=== PATIENT | male | born 1990 | race Caucasian/White ===

== ENCOUNTER 2016-10-11 09:11 | Emergency (ER) | payer OTHER ==
--- NOTE | 2016-10-11 09:46 | XR ---
EXAMINATION TYPE: XR foot complete RT DATE OF EXAM: 10/11/2016 9:42 AM CLINICAL HISTORY: pain TECHNIQUE: Frontal, lateral and oblique images of the right foot are obtained. COMPARISON: None. FINDINGS: There is no acute fracture/dislocation evident. The joint spaces appear within normal cervantes its. The overlying soft tissue appears unremarkable. IMPRESSION: There is no acute fracture or dislocation. ICD 10 NO FRACTURE, INITIAL EVALUATION
--- NOTE | 2016-10-11 10:17 | ED ---
Lower Extremity Injury HPI - General Chief Complaint: Extremity Injury, Lower Stated Complaint: Rt ankle and toe injury Time Seen by Provider: 10/11/16 10:07 Source: patient Mode of arrival: wheelchair Limitations: no limitations - History of Present Illness Initial Comments: Patient is a 26-year-old man who presents with pain at the right first toe. The patient states that the pain started coming on over last night and into this morning. He relates that he had been taking a cheap [employer] ball on Tuesday. The patient relates that ever since he had injured his right foot probably 2-3 years ago [place] he has had recurring pains to that area, usually after kicking. He states that the kicking does not even have to be traumatic. Patient denies fever or chills. Patient denies alcohol or any drug use. MD Complaint: foot injury Onset/Timin -: days(s) Injury: Toes: Right Type of Injury: blunt Place: home Severity: moderate Improves With: nothing Worsens With: weight bearing, palpation Context: other Associated Symptoms: swelling - Related Data Previous Rx's Medication Instructions Recorded Ibuprofen [Motrin] 800 mg PO Q8HR PRN #20 tab 10/11/16 predniSONE 60 mg PO DAILY #30 tab 10/11/16 Allergies Allergy/AdvReac Type Severity Reaction Status Date / Time No Known Allergies Allergy Verified 10/11/16 09:59 Review of Systems ROS Statement: Those systems with pertinent positive or pertinent negative responses have been documented in the HPI. ROS Other: All systems not noted in ROS Statement are negative. Constitutional: Denies: fever, chills, weakness Musculoskeletal: Reports: joint swelling, arthralgia Skin: Reports: change in color Past Medical History Past Medical History: No Reported History History of Any Multi-Drug Resistant Organisms: None Reported Past Surgical History: Appendectomy, Tonsillectomy Past Psychological History: No Psychological Hx Reported Smoking Status: Current every day smoker Past Alcohol Use History: Occasional Past Drug Use History: None Reported General Exam Limitations: no limitations General appearance: alert, in no apparent distress Head exam: Present: atraumatic, normocephalic Eye exam: Present: normal appearance. Absent: scleral icterus, conjunctival injection Cardiovascular Exam: Present: other (Pedal pulses and capillary refill to the right foot normal) Extremities exam: Present: tenderness, normal capillary refill, joint swelling ( Patient has tenderness at the first MTP joint and some soft tissue swelling there. Range of motion is limited by pain but is intact.), other (There is warmth and erythema at the right first MTP joint). Absent: pedal edema Neurological exam: Present: alert. Absent: motor sensory deficit Skin exam: Present: warm, dry, intact, erythema Course Vital Signs 10/11/16 09:18 Temperature 98 F Pulse Rate 89 Respiratory 20 Rate Blood Pressure 140/88 O2 Sat by Pulse 99 Oximetry Medical Decision Making - Lab Data Result diagrams: 10/11/16 10:10 10/11/16 10:10 Lab Results 10/11/16 10/11/16 Range/Units 10:10 10:10 WBC 6.6 (3.8-10.6) k/uL RBC 5.03 (4.30-5.90) m/uL Hgb 15.7 (13.0-17.5) gm/dL Hct 45.8 (39.0-53.0) % MCV 91.2 (80.0-100.0) fL MCH 31.3 (25.0-35.0) pg MCHC 34.3 (31.0-37.0) g/dL RDW 12.8 (11.5-15.5) % Plt Count 246 (150-450) k/uL Neutrophils % 63 % Lymphocytes % 28 % Monocytes % 6 % Eosinophils % 2 % Basophils % 0 % Neutrophils # 4.2 (1.3-7.7) k/uL Lymphocytes # 1.8 (1.0-4.8) k/uL Monocytes # 0.4 (0-1.0) k/uL Eosinophils # 0.1 (0-0.7) k/uL Basophils # 0.0 (0-0.2) k/uL Sodium 142 (137-145) mmol/L Potassium 4.4 (3.5-5.1) mmol/L Chloride 105 (98-107) mmol/L Carbon Dioxide 26 (22-30) mmol/L Anion Gap 11 mmol/L BUN 20 (9-20) mg/dL Creatinine 0.91 (0.66-1.25) mg/dL Est GFR (MDRD) Af Amer >60 (>60 ml/min/1.73 sqM) Est GFR (MDRD) Non-Af >60 (>60 ml/min/1.73 sqM) Glucose 96 (74-99) mg/dL Uric Acid 5.8 (3.5-8.5) mg/dL Calcium 9.4 (8.4-10.2) mg/dL Disposition Clinical Impression: Arthralgia Narrative: This patient has arthralgia of the first right MTP joint, this is an initial evaluation. Disposition: HOME SELF-CARE Condition: Good Instructions: Arthralgia (ED), Gout (ED) Prescriptions: Ibuprofen [Motrin] 800 mg PO Q8HR PRN #20 tab PRN Reason: Pain predniSONE 60 mg PO DAILY #30 tab Referrals: None,Stated [Primary Care Provider] - 1-2 days Malcom Molina MD [REFERRING] - 1-2 days
[2016-10-11] MEDS ORDERED: IBUPROFEN 400 MG TAB PO STA (10:22)
[2016-10-11] MEDS ORDERED: predniSONE 20 MG TAB PO STA (10:22)
[2016-10-11] MEDS ORDERED: Acetaminophen-Codeine 300-30mg TAB PO STA (10:23)
[2016-10-11 10:55] LABS: Basophils % (A) 0 %; CH 32.5; CHCM 35.8; Eosinophils # (A) 0.1 k/uL (0-0.7); Eosinophils % (A) 2 %; HCT 45.8 % (39.0-53.0); HDW 2.87; HGB 15.7 gm/dL (13.0-17.5); Luc % (Auto) 2; Lymphocytes # (A) 1.8 k/uL (1.0-4.8); Lymphocytes % (A) 28 %; MCH 31.3 pg (25.0-35.0); MCHC 34.3 g/dL (31.0-37.0); MCV 91.2 fL (80.0-100.0); Mean Platelet Volume 6.4; Monocytes # (A) 0.4 k/uL (0-1.0); Monocytes % (A) 6 %; Neutrophils # (A) 4.2 k/uL (1.3-7.7); Neutrophils % (A) 63 %; RBC 5.03 m/uL (4.30-5.90); RDW 12.8 % (11.5-15.5); WBC 6.6 k/uL (3.8-10.6); WBC (Perox) 6.57
[2016-10-11 11:06] LABS: Anion Gap 11 mmol/L; Blood Urea Nitrogen 20 mg/dL (9-20); Calcium 9.4 mg/dL (8.4-10.2); Carbon Dioxide 26 mmol/L (22-30); Chloride 105 mmol/L (98-107); Glucose 96 mg/dL (74-99); Non-African American GFR(MDRD) >60 (>60 ml/min/1.73 sqM); Potassium 4.4 mmol/L (3.5-5.1); Sodium 142 mmol/L (137-145); Uric Acid 5.8 mg/dL (3.5-8.5)
[2016-10-11 12:31] VITALS: BP 129/72; PULSE 79; RESP 16; TEMP 979
== END 2016-10-11 12:29 | disposition home or self-care (01) ==
LOC: EC 09:11
DX: M25.571 Pain in right ankle and joints of right foot (principal); F17.200 Nicotine dependence, unspecified, uncomplicated; W22.8XXA Striking against or struck by other objects, initial encounter
CPT/HCPCS: 36415; 80048; 84550; 85025; 73630; 99283; J7512

== ENCOUNTER 2017-03-30 04:58 | Emergency (ER) | payer OTHER ==
[2017-03-30 05:06] VITALS: PULSE 78
[2017-03-30] MEDS ORDERED: IBUPROFEN 800 MG TAB PO STA (06:16)
[2017-03-30] MEDS ORDERED: DEXAMETHASONE SOD PHOSPHATE 10 MG/ML 1 ML VIAL IM STA (06:16)
[2017-03-30 06:17] VITALS: BP 112/61; RESP 16
--- NOTE | 2017-03-30 06:17 | ED ---
General Adult HPI - General Chief complaint: Extremity Problem,Nontraumatic Stated complaint: Arm numbness Time Seen by Provider: 03/30/17 05:15 Source: patient, RN notes reviewed, old records reviewed Mode of arrival: ambulatory Limitations: no limitations - History of Present Illness Initial comments: This is a 26-year-old out of the ER for evaluation of right arm pain and numbness and tingling. Patient states he's had this on and off for about a week or so. Has had a prior his life. 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 Patient denies any other injury or trauma. - Related Data Previous Rx's Medication Instructions Recorded Naproxen [Naprosyn] 500 mg PO Q12HR #30 tab 03/30/17 Allergies Allergy/AdvReac Type Severity Reaction Status Date / Time No Known Allergies Allergy Verified 10/11/16 09:59 Review of Systems ROS Statement: Those systems with pertinent positive or pertinent negative responses have been documented in the HPI. ROS Other: All systems not noted in ROS Statement are negative. Past Medical History Past Medical History: No Reported History History of Any Multi-Drug Resistant Organisms: None Reported Past Surgical History: Appendectomy, Tonsillectomy Past Psychological History: No Psychological Hx Reported Smoking Status: Current every day smoker Past Alcohol Use History: Rare Past Drug Use History: None Reported General Exam Limitations: no limitations General appearance: alert, in no apparent distress Head exam: Present: atraumatic, normocephalic, normal inspection Eye exam: Present: normal appearance, PERRL, EOMI. Absent: scleral icterus, conjunctival injection, periorbital swelling ENT exam: Present: normal exam, mucous membranes moist Neck exam: Present: normal inspection. Absent: tenderness, meningismus, lymphadenopathy Respiratory exam: Present: normal lung sounds bilaterally. Absent: respiratory distress, wheezes, rales, rhonchi, stridor Cardiovascular Exam: Present: regular rate, normal rhythm, normal heart sounds. Absent: systolic murmur, diastolic murmur, rubs, gallop, clicks GI/Abdominal exam: Present: soft, normal bowel sounds. Absent: distended, tenderness, guarding, rebound, rigid Extremities exam: Present: normal inspection, full ROM, normal capillary refill. Absent: tenderness, pedal edema, joint swelling, calf tenderness Back exam: Present: normal inspection Neurological exam: Present: alert, oriented X3, CN II-XII intact Psychiatric exam: Present: normal affect, normal mood Skin exam: Present: warm, dry, intact, normal color. Absent: rash Course Vital Signs 03/30/17 03/30/17 03/30/17 05:02 06:16 06:41 Temperature 97.4 F L 97 F L Pulse Rate 78 78 Respiratory 18 16 Rate Blood Pressure 117/69 112/61 O2 Sat by Pulse 100 98 Oximetry Medical Decision Making - Medical Decision Making Twice a milligrams UTI with right arm numbness. Patient does physical labor using right arm. Also acting asking for work note. Patient will be discharged home Disposition Clinical Impression: Arm paresthesia, right Disposition: HOME SELF-CARE Condition: Good Instructions: Paresthesia (ED) Prescriptions: Naproxen [Naprosyn] 500 mg PO Q12HR #30 tab Referrals: None,Stated [Primary Care Provider] - 1-2 days
[2017-03-30 06:41] VITALS: TEMP 97
== END 2017-03-30 06:42 | disposition home or self-care (01) ==
LOC: EC 04:58
DX: R20.2 Paresthesia of skin (principal); F17.200 Nicotine dependence, unspecified, uncomplicated
CPT/HCPCS: 99284; 96372; J1100